=== PATIENT | female | born 1995 | race Caucasian/White ===

== ENCOUNTER 2018-04-13 19:14 | Emergency (ER) | payer OTHER ==
[2018-04-13 19:39] VITALS: BP 134/90; PULSE 112; O2SAT 99
[2018-04-13 19:54] LABS: Appearance CLEAR (CLEAR); Bilirubin NEGATIVE (NEGATIVE); Blood MODERATE Ery/ul (0-5); Glucose NEGATIVE (NEGATIVE); Ketones NEGATIVE (NEGATIVE); Leukocyte Esterase NEGATIVE (NEGATIVE); Mucus SLIGHT /HPF (NEGATIVE); Nitrite NEGATIVE (NEGATIVE); Protein,Urine Dip NEGATIVE (Negative); Specific Gravity 1.018 (1.005-1.025); Urobilinogen NEGATIVE mg/dL (0-1)
[2018-04-13 20:02] LABS: Amphetamine,Urine NEGATIVE (NEGATIVE); Barbiturate,Urine NEGATIVE (NEGATIVE); Benzodiazepine,Urine NEGATIVE (NEGATIVE); Cocaine,Urine NEGATIVE (NEGATIVE); Methadone,Urine NEGATIVE (NEGATIVE); Opiate,Urine NEGATIVE (NEGATIVE); PCP,Urine NEGATIVE (NEGATIVE); THC,Urine NEGATIVE (NEGATIVE)
[2018-04-13] MEDS ORDERED: TORAdol 30 mg Injection IM ONE (20:04)
--- NOTE | 2018-04-13 20:04 | ERPHSYRPT ---
- History of Present Illness Time Seen by Provider: 04/13/18 19:35 Source: patient Exam Limitations: clinical condition Patient Subjective Stated Complaint: pt reports she has lower back pain for approx 2 weeks, states she has history of disc issues to the lumbar region. pt reports she also has some abdominal cramping as well as some discomfort related to hemorrhoids. pt denies any injury. Triage Nursing Assessment: pt is aox3, pupils perrl, afebrile, resps easy and non labored, radial pulses strong and equal, pt abd soft and tender to lower quadrants, bowel sounds present and normoactive x4. pt skin pink warm dry. pt ROM intact, pt sensation intact, pt ambulated to trt room with no difficulties. Physician History: PATIENT WITH A HISTORY OF CHRONIC LOW BACK PAIN, WORSENING SYMPTOMS FOR 2 WEEKS. DENIES TRAUMA OR INJURY. ALSO COMPLAINS OF VAGINAL PAIN AFTER INTERCOURSE. HAS IRREGULAR MENSES. LAST MENSTRUAL PERIOD PAST 3 DAYS, PREVIOUS MENSTRUAL PERIOD 3 WEEKS AGO. DENIES ABDOMINAL PAIN, RADIATION OF PAIN INTO LEGS. Timing/Duration: week(s) Method of Injury: other (DENIES INJURY OR TRAUMA) Quality: throbbing Back Pain Location: lumbar spine Severity of Pain-Max: none Severity of Pain-Current: none Modifying Factors: Improves With: movement Associated Symptoms: denies symptoms Previous symptoms: same symptoms as today Allergies/Adverse Reactions: Penicillins Allergy (Verified 04/13/18 19:40) Home Medications: Quetiapine Fumarate 100 mg PO HS 04/13/18 [History] Sertraline HCl 100 mg PO DAILY 04/13/18 [History] Hx Tetanus, Diphtheria Vaccination/Date Given: Yes Hx Influenza Vaccination/Date Given: No Hx Pneumococcal Vaccination/Date Given: No Immunizations Up to Date: Yes - Review of Systems Constitutional: No Fever, No Chills Eyes: No Symptoms Ears, Nose, & Throat: No Symptoms Respiratory: No Cough, No Dyspnea Cardiac: No Chest Pain, No Edema, No Syncope Abdominal/Gastrointestinal: No Abdominal Pain, No Nausea, No Vomiting, No Diarrhea Genitourinary Symptoms: Other (VAGINAL PAIN) Musculoskeletal: Back Pain Neurological: No Dizziness, No Focal Weakness, No Sensory Changes Psychological: No Symptoms Endocrine: No Symptoms - Past Medical History Musculoskeletal History: Other Psycho-Social History: Depression Other Medical History: slipped disc. major depressive disorder. schizophrenia. PTSD - Past Surgical History Past Surgical History: Yes Other Surgical History: wisdom teeth - Social History Smoking Status: Current every day smoker Drug Use: none Patient Lives Alone: No - Female History Hx Last Menstrual Period: 04/13/18 Hx Now: (unk) - Nursing Vital Signs Nursing Vital Signs: Initial Vital Signs Temperature 98.7 F 04/13/18 19:24 Pulse Rate 112 H 04/13/18 19:24 Respiratory Rate 20 04/13/18 19:24 Blood Pressure 134/90 04/13/18 19:24 O2 Sat by Pulse Oximetry 99 04/13/18 19:24 Pain Scale Pain Intensity 4 - Physical Exam General Appearance: no apparent distress, alert Respiratory Exam: normal breath sounds, lungs clear, No respiratory distress Cardiovascular Exam: regular rate/rhythm, normal heart sounds Gastrointestinal Exam: soft, normal bowel sounds (NONTENDER, NO PALPABLE MASSES ), No tenderness, No mass Pelvic Exam: normal external exam (NORMAL UTERINE SIZE, MINIMAL BLOOD IN VAGINAL VAULT), other (VAGINAL TENDERMESS ALONG VAGINAL ARREDONDO 3 OCLOCK AND 9 OCLOCK) Back Exam: normal inspection, decreased range of motion (PARALUMBAR TENDERNESS L -3 TO S-1) Extremity Exam: normal inspection Peripheral Pulses: carotid (R): 2+, carotid (L): 2+, femoral (R): 2+, femoral (L ): 2+, dorsalis-pedis (R): 2+, dorsalis-pedis (L): 2+ Neurologic Exam: alert, oriented x 3, cooperative, automatic blocker II-XII nml as tested, normal mood/affect, nml station & gait, sensation nml, No motor deficits Skin Exam: normal color SpO2 Interpretation: normal SpO2: 99 Ordered Tests: Active Orders 24 hr Category Date Time Status HCG,QUALITATIVE URINE Stat Lab 04/13/18 19:39 Completed UA W/RFX UR CULTURE Stat Lab 04/13/18 19:39 Completed Urine Triage Profile Stat Lab 04/13/18 19:39 Completed Wet Prep Stat Lab 04/13/18 20:17 Completed Medication Summary Discontinued Medications Generic Name Dose Route Start Last Admin Trade Name Freq PRN Reason Stop Dose Admin Acetaminophen/Codeine Phosphate 1 tab 04/13/18 20:52 04/13/18 21:04 Tylenol #3 Tablet PO 04/13/18 20:53 1 tab SENT HOME W/ PATIENT ONE Administration Acetaminophen/Codeine Phosphate Confirm 04/13/18 21:02 Tylenol #3 Tablet Administered 04/13/18 21:03 Dose 1 tab .ROUTE .STK-MED ONE Ketorolac Tromethamine 60 mg 04/13/18 20:04 04/13/18 20:19 Toradol 30 Mg Injection IM 04/13/18 20:05 60 mg STAT ONE Administration Ketorolac Tromethamine Confirm 04/13/18 20:16 Toradol 30 Mg Injection Administered 04/13/18 20:17 Dose 60 mg .ROUTE .STK-MED ONE Lab/Rad Data: Laboratory Results 04/13/18 04/13/18 04/13/18 Range/Units 20:17 20:17 19:39 Urine Color (YELLOW) Urine Appearance (CLEAR) Urine pH (5-6) Ur Specific [place] (1.005-1.025) Urine Protein (Negative) Urine Ketones (NEGATIVE) Urine Blood (0-5) Vic[place]et/ul Urine Nitrite (NEGATIVE) Urine Bilirubin (NEGATIVE) Urine Urobilinogen (0-1) mg/dL Ur Leukocyte Esterase (NEGATIVE) Urine WBC (Auto) (0-5) /HPF Urine RBC (Auto) (0-2) /HPF U Epithel Cells (Auto) (FEW) /HPF Urine Bacteria (Auto) (NEGATIVE) /HPF Urine Mucus (Auto) (NEGATIVE) /HPF Urine Culture Reflexed (NO) Urine Glucose (NEGATIVE) mg/dL Urine HCG, Qual NEGATIVE (Negative) WBC (Wet Prep) None Seen RBC (Wet Prep) Few Epi Cells (Wet Prep) Rare Bacteria (Wet Prep) Rare Clue Cells (Wet Prep) None Seen Trichomonas (Wet Prep) None Seen Budding Yeast (Wet Prp) None Seen Urine Opiates Level (NEGATIVE) Ur Methadone (NEGATIVE) Urine Barbiturates (NEGATIVE) Ur Phencyclidine (PCP) (NEGATIVE) Urine Amphetamine (NEGATIVE) U Benzodiazepine Level (NEGATIVE) Urine Cocaine (NEGATIVE) Urine Marijuana (THC) (NEGATIVE) Chlamydia DNA (PCR) NEGATIVE N.gonorrhoeae DNA Probe NEGATIVE 04/13/18 04/13/18 Range/Units 19:39 19:39 Urine Color YELLOW (YELLOW) Urine Appearance CLEAR (CLEAR) Urine pH 6.0 (5-6) Ur Specific [place] 1.018 (1.005-1.025) Urine Protein NEGATIVE (Negative) Urine Ketones NEGATIVE (NEGATIVE) Urine Blood MODERATE (0-5) Vicente/ul Urine Nitrite NEGATIVE (NEGATIVE) Urine Bilirubin NEGATIVE (NEGATIVE) Urine Urobilinogen NEGATIVE (0-1) mg/dL Ur Leukocyte Esterase NEGATIVE (NEGATIVE) Urine WBC (Auto) NONE (0-5) /HPF Urine RBC (Auto) NONE (0-2) /HPF U Epithel Cells (Auto) NONE (FEW) /HPF Urine Bacteria (Auto) NONE (NEGATIVE) /HPF Urine Mucus (Auto) SLIGHT (NEGATIVE) /HPF Urine Culture Reflexed NO (NO) Urine Glucose NEGATIVE (NEGATIVE) mg/dL Urine HCG, Qual (Negative) WBC (Wet Prep) RBC (Wet Prep) Epi Cells (Wet Prep) Bacteria (Wet Prep) Clue Cells (Wet Prep) Trichomonas (Wet Prep) Budding Yeast (Wet Prp) Urine Opiates Level NEGATIVE (NEGATIVE) Ur Methadone NEGATIVE (NEGATIVE) Urine Barbiturates NEGATIVE (NEGATIVE) Ur Phencyclidine (PCP) NEGATIVE (NEGATIVE) Urine Amphetamine NEGATIVE (NEGATIVE) U Benzodiazepine Level NEGATIVE (NEGATIVE) Urine Cocaine NEGATIVE (NEGATIVE) Urine Marijuana (THC) NEGATIVE (NEGATIVE) Chlamydia DNA (PCR) N.gonorrhoeae DNA Probe - Progress Progress Note: 04/13/18 20:58 TORADOL 60MG IM, WET PREP NEGATIVE, CHLAMYDIAE AND GC NEGATIVE 04/13/18 21:51 Counseled pt/family regarding: lab results, diagnosis, need for follow-up - Departure Time of Disposition: 21:57 Departure Disposition: Home Clinical Impression: CHRONIC LOW BACK PAIN, DYSFUNCTIONAL UTERINE BLEEDING, Dyspareunia Condition: Stable Critical Care Time: No Referrals: DOCTOR,NO FAMILY [Primary Care Provider] - Additional Instructions: CONSULT YOUR PRIMARY CARE PROVIDER FOR EVALUATION, REFERRAL TO [facility]ACHINE [facility]EDER FOR EVALUATION OF IRREGULAR MENSES. PERCOGESIC 1 TABLET EVERY 4 HOURS NEEDED FOR PAIN. Prescriptions: Acetaminophen/Diphenhydramine [Percogesic 325-12.5 mg Tablet] 1 each PO Q4H PRN PRN #20 tablet PRN Reason: Pain
[2018-04-13] MEDS ORDERED: TORAdol 30 mg Injection ONE (20:16)
[2018-04-13 20:25] LABS: Bacteria Rare; Clue Cells None Seen; Red Blood Cells Few; Trichomonas None Seen; White Blood Cells None Seen; Yeast None Seen
[2018-04-13] MEDS ORDERED: Tylenol #3 Tablet PO ONE (20:52)
[2018-04-13] MEDS ORDERED: Tylenol #3 Tablet ONE (21:02)
[2018-04-13 21:48] LABS: CHLAMYDIA DNA NEGATIVE; N GONORRHOEAE DNA NEGATIVE
== END 2018-04-13 21:59 | disposition home or self-care (01) ==
LOC: ED 19:14
DX: M54.5 Low back pain (principal); G89.29 Other chronic pain; N93.8 Other specified abnormal uterine and vaginal bleeding; N94.10 Unspecified dyspareunia; F32.9 Major depressive disorder, single episode, unspecified; F20.9 Schizophrenia, unspecified; F43.10 Post-traumatic stress disorder, unspecified
CPT/HCPCS: 80307; 81001; 84703; 87210; 87490; 87590; 96372; 99284; J1885; A9270-GY

== ENCOUNTER 2018-05-04 11:37 | Emergency (ER) | payer OTHER | END 2018-05-04 12:50 | disposition left against medical advice (07) | LOC: ED 11:37 | DX: Z53.9 Procedure and treatment not carried out, unspecified reason (principal) | CPT/HCPCS: 99281 ==